=== PATIENT | male | born 1955 | race Caucasian/White ===

== ENCOUNTER → 2022-01-18 15:45 | Outpatient (CLI) | payer MEDICARE, SELFPAY ==
--- NOTE | 2022-01-18 15:54 | XR_ITS ---
PROCEDURE INFORMATION: Exam: XR Cervical Spine Exam date and time: 01/18/2022 3:54 PM Age: 66 years old Clinical indication: Neck pain; Additional info: Brisk reflexes TECHNIQUE: Imaging protocol: XR of the cervical spine. Views: 4 or 5 views. COMPARISON: No relevant prior studies available. FINDINGS: Limitations: Cervical spine visualized to C5 level on lateral view. Bones/joints: No acute fracture. Normal alignment. No dynamic instability on flexion or extension views. RIGHT neuroforaminal narrowing at C4-C5 level. Soft tissues: Unremarkable. IMPRESSION: No fracture. If symptoms persist, consider MRI.
[2022-01-18 17:06] LABS: Basophils # 0.1 K/mm3 (0-0.2); Basophils % 0.9 % (0.1-2.0); Eosinophils # 0.2 K/mm3 (0.0-0.4); Eosinophils % 2.3 % (0.1-12.0); Hematocrit 47.1 % (42.0-52.0); Hemoglobin 15.7 g/dL (14.1-18.0); Lymphocytes # 1.4 K/mm3 (0.7-4.5); Lymphocytes % 14.7 % (10-50); Mean Corpuscular HGB Conc 33.2 g/dL (31.8-35.4); Mean Corpuscular Hemoglobin 29.8 pg (27.0-31.2); Mean Corpuscular Volume 89.5 fl (80-94); Mean Platelet Volume 7.7 fl (7.4-10.4); Monocytes # 0.6 K/mm3 (0.1-1.0); Neutrophils # 7.3 K/mm3 (1.8-7.8); Neutrophils % 76.2 % (37.0-80.0); Platelet Count 335 K/mm3 (142-424); Red Blood Count 5.26 M/mm3 (4.60-6.20); Red Cell Distribution Width 14.1 % (11.5-17.5); White Blood Count 9.6 K/mm3 (4.8-10.8)
[2022-01-18 17:42] LABS: Alanine Aminotransferase 28 U/L (12-78); Albumin Level 4.4 g/dl (3.5-5.0); Albumin/Globulin Ratio 1.9 (1.1-1.8); Alkaline Phosphatase 94 U/L (38-126); Anion Gap 15.6 mEq/L (5-15); Aspartate Amino Transferase 24 U/L (17-59); Bilirubin,Total 0.6 mg/dl (0.2-1.3); Blood Urea Nitrogen 26 mg/dl (9-20); Calcium 9.1 mg/dl (8.4-10.2); Carbon Dioxide 27 mmol/L (22.0-30.0); Chloride 101 mmol/L (98-107); Estimated Glomerular Filt Rate 67 ml/min (>60); GFR (African American) 81 ML/MIN (>60); Globulin 2.3 g/dL (1.3-3.2); Glucose 115 mg/dl (74-100); Potassium 4.6 mmoL/L (3.5-5.1); Sodium 139 mmol/L (136-145); Total Protein,Serum 6.7 g/dl (6.3-8.2)
[2022-01-18 18:14] LABS: Thyroid Stimulating Hormone 2.33 uIU/mL (0.465-4.68)
[2022-01-18 18:48] LABS: Vitamin B12 789 pg/mL (239-931)
== END ==
PROVIDERS: PCP Family Medicine; Visit Provider Nurse Practitioner Family
DX: R25.1 Tremor, unspecified (principal); M54.2 Cervicalgia
CPT/HCPCS: 36415; 72052; 80053; 82607; 82746; 84443; 85025

== ENCOUNTER → 2022-01-24 08:41 | Outpatient (CLI) | payer MEDICARE, SELFPAY ==
--- NOTE | 2022-01-24 08:42 | MR_ITS ---
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 tremors x2yrs ago. worse on rt side but now on left. hx prostate cancer x1yr ago in remission. FINDINGS: Multiplanar MR imaging of the cervical spine was performed without contrast. On the sagittal T2-weighted images, disc degeneration is seen throughout. There is no evidence of fracture. The vertebral alignment is normal. The cervical spinal cord has an unremarkable appearance without evidence of mass, edema or syrinx. No significant canal stenosis is identified. The cervicomedullary junction is normal. C2-3: There is no significant canal stenosis or neural foraminal narrowing. C3-4: Uncovertebral osteophytes with mild left neuroforaminal narrowing. C4-5: Annular disc bulge and uncovertebral osteophytes with severe right and moderate left neuroforaminal narrowing. C5-6: Annular disc bulge and uncovertebral osteophytes with mild bilateral neuroforaminal narrowing. C6-7: Annular disc bulge with right uncovertebral osteophytes and severe right neuroforaminal narrowing. C7-T1: There is no significant canal stenosis or neural foraminal narrowing. IMPRESSION: Multilevel degenerative disc disease with severe right neuroforaminal narrowing at C4-5 and C6-7. Reviewed, Interpreted and Dictated by Rna Lee III, MD Transcribed by Huyen Lora Authenticated by Ran Lee III, MD on 01/24/2022 11:12:15 AM [facility]
--- NOTE | 2022-01-24 08:42 | MR_ITS ---
FINAL REPORT CLINICAL HISTORY: [employer] abnormality, eval for metastatic disease. tremors x2yrs ago. worse on rt side but now on left. hx prostate cancer x1yr ago in remission. 20ml prohance given FINDINGS: Multiplanar MR imaging of the brain was performed without and with contrast. There is no evidence of intracranial hemorrhage or mass. No abnormal extra-axial fluid collection is seen. The ventricular size is within normal limits. There is no evidence of shift of the midline structures. The posterior fossa and brainstem have an unremarkable appearance. No area of abnormal restricted diffusion is identified. No abnormal contrast enhancement is seen. Normal major vessel vascular flow voids are noted. IMPRESSION: No acute intracranial abnormality identified. Reviewed, Interpreted and Dictated by Ran Lee III, MD Transcribed by Huyen Lora Authenticated by Ran Lee III, MD on 01/24/2022 11:12:17 AM [facility]
== END ==
PROVIDERS: PCP Family Medicine; Visit Provider Nurse Practitioner Family
DX: R25.1 Tremor, unspecified (principal); R29.2 Abnormal reflex; G47.50 Parasomnia, unspecified; R06.81 Apnea, not elsewhere classified; R68.89 Other general symptoms and signs; Z85.46 Personal history of malignant neoplasm of prostate
CPT/HCPCS: 70553; 72141; 76376; A9576

== ENCOUNTER → 2022-02-22 16:08 | Outpatient (CLI) | payer MEDICARE, SELFPAY ==
[2022-02-22 17:36] LABS: Basophils % 0.8 % (0.1-2.0); Eosinophils # 0.2 K/mm3 (0.0-0.4); Eosinophils % 3.7 % (0.1-12.0); Hemoglobin 14.9 g/dL (14.1-18.0); Lymphocytes # 1.2 K/mm3 (0.7-4.5); Mean Corpuscular HGB Conc 33.1 g/dL (31.8-35.4); Mean Corpuscular Hemoglobin 29.7 pg (27.0-31.2); Mean Corpuscular Volume 89.5 fl (80-94); Mean Platelet Volume 7.7 fl (7.4-10.4); Monocytes # 0.4 K/mm3 (0.1-1.0); Monocytes % 7.3 % (1.7-9.3); Neutrophils # 3.6 K/mm3 (1.8-7.8); Neutrophils % 66.3 % (37.0-80.0); Platelet Count 299 K/mm3 (142-424); Red Blood Count 5.03 M/mm3 (4.60-6.20); Red Cell Distribution Width 14.2 % (11.5-17.5); White Blood Count 5.4 K/mm3 (4.8-10.8)
[2022-02-22 18:34] LABS: Alanine Aminotransferase 34 U/L (12-78); Albumin/Globulin Ratio 1.7 (1.1-1.8); Alkaline Phosphatase 97 U/L (38-126); Anion Gap 12.7 mEq/L (5-15); Aspartate Amino Transferase 31 U/L (17-59); Bilirubin,Total 0.5 mg/dl (0.2-1.3); Blood Urea Nitrogen 24 mg/dl (9-20); Carbon Dioxide 27 mmol/L (22.0-30.0); Chloride 104 mmol/L (98-107); Estimated Glomerular Filt Rate 67 ml/min (>60); GFR (African American) 81 ML/MIN (>60); Globulin 2.3 g/dL (1.3-3.2); Glucose 129 mg/dl (74-100); Potassium 4.7 mmoL/L (3.5-5.1); Sodium 139 mmol/L (136-145); Total Protein,Serum 6.3 g/dl (6.3-8.2)
[2022-02-22 19:06] LABS: Thyroid Stimulating Hormone 1.96 uIU/mL (0.465-4.68)
[2022-02-22 19:41] LABS: Vitamin B12 596 pg/mL (239-931)
[2022-02-22 19:42] LABS: Folate 5.24 ng/mL
== END ==
PROVIDERS: Visit Provider Nurse Practitioner Family
DX: I25.118 Atherosclerotic heart disease of native coronary artery with other forms of angina pectoris (principal); R25.1 Tremor, unspecified
CPT/HCPCS: 36415; 80053; 82607; 82746; 84443; 85025

== ENCOUNTER → 2022-03-28 13:56 | Outpatient (CLI) | payer MEDICARE, SELFPAY | PROVIDERS: Visit Provider Nurse Practitioner Family | DX: R73.9 Hyperglycemia, unspecified (principal) | CPT/HCPCS: 36415; 83036 ==